=== PATIENT | female | born 1955 | race Caucasian/White ===

== ENCOUNTER 2021-04-27 11:03 | Inpatient (IN) | payer MEDICARE ==
[2021-04-27] VITALS (8 sets, daily range): BP systolic 104–160; BP diastolic 50–74
[~2021-04-27] VITALS: Ht 165.1 cm; Wt 63.6 kg
[2021-04-27 11:38] LABS: BASOPHILS % (AUTO) 0.1 % (0-1); MEAN CORPUSCULAR HGB CONC 30.4 g/dL (33.0-36.5)
[2021-04-27 11:39] LABS: EOSINOPHILS % (AUTO) 0.1 % (0-6); HEMATOCRIT 24.2 % (35.0-45.0); HEMOGLOBIN 7.4 g/dl (12.0-16.0); LYMPHOCYTES # (AUTO) 1.9 X10'3 (1.1-4.8); LYMPHOCYTES % (AUTO) 5.9 % (21-51); MEAN CORPUSCULAR HEMOGLOBIN 20.7 PG (27.0-31.0); MEAN CORPUSCULAR VOLUME 68.2 FL (78-98); MONOCYTES # (AUTO) 1.8 X10'3 (0-0.9); MONOCYTES % (AUTO) 5.5 % (2-12); NEUTROPHILS # (AUTO) 28.7 X10'3 (1.8-7.7); NEUTROPHILS % (AUTO) 88.4 % (42-75); RED BLOOD COUNT 3.56 X10'6 (4.20-5.60)
[2021-04-27 11:43] LABS: WHITE BLOOD COUNT 32.5 X10'3 (4.5-11.0)
[2021-04-27 11:44] LABS: PLATELET COUNT 1088 X10'3 (140-440)
[2021-04-27 11:48] LABS: ALANINE AMINOTRANSFERASE 19 U/L (12-78); ALBUMIN 1.7 G/DL (3.4-5.0); ALBUMIN/GLOBULIN RATIO 0.3 (1.1-1.5); ALKALINE PHOSPHATASE 170 IU/L (46-116); ANION GAP 14 (8-16); ASPARTATE AMINO TRANSFERASE 15 U/L (10-37); BILIRUBIN,TOTAL 0.3 MG/DL (0.1-1.0); BLOOD UREA NITROGEN 16 MG/DL (7-18); BUN/CREATININE RATIO 20.5 (6.6-38.0); CALCIUM 8.5 MG/DL (8.5-10.1); CHLORIDE 102 MMOL/L (99-107); CREATININE 0.78 MG/DL (0.40-0.90); GLUCOSE 143 MG/DL (70-104); POTASSIUM 3.9 MMOL/L (3.5-5.1); SODIUM 138 MMOL/L (135-145); TOTAL CARBON DIOXIDE 21.6 MMOL/L (24-32); TOTAL PROTEIN 8.2 G/DL (6.4-8.2); eGFR 73 ML/MIN
[2021-04-27] MEDS: normal saline 1000ML IV soln IV ONE ×2 (11:50→12:44)
[2021-04-27] MEDS ORDERED: CefTRIAXone/D5W-Rocephin 1gm 50 ML IV ONE (11:55)
[2021-04-27] MEDS ORDERED: vancomycin/NS 1 GM ADD-VANTAGE 250 ML IV ONE (11:55)
[2021-04-27] MEDS ORDERED: normal saline 1000ml 1,000 ML IV ONE ×2 (11:55→12:35)
[2021-04-27] MEDS ORDERED: iohexol 300mg/ml 100ml inj. ONE (12:08)
[2021-04-27 12:17] LABS: CLARITY,URINE CLOUDY (Clear); COLOR,URINE YELLOW (Yellow); GLUCOSE, URINE NEGATIVE (Neg); KETONES,URINE NEGATIVE (Neg); LEUKOCYTE ESTERASE ,URINE MODERATE (Neg); NITRITES, URINE POSITIVE (Neg); OCCULT BLOOD,URINE SMALL (Neg); PROTEIN,URINE 30 mg/dl (Neg)
[2021-04-27 12:23] LABS: UA COLLECTION TYPE CLN CATCH MIDSTREAM
[2021-04-27 12:29] LABS: WBC,URINE TNTC /HPF (0-4)
[2021-04-27 12:30] LABS: BACTERIA,URINE 4+ /HPF (Neg); MUCUS STRANDS NONE SEEN /LPF (Neg); SQUAMOUS EPITHELIAL CELL,UR MODERATE /LPF (FEW); WBC CLUMPS,URINE FEW /HPF (NEGATIVE)
[2021-04-27 12:40] LABS: ANISOCYTOSIS 3+; PLATELET ESTIMATE INCREASED; TOTAL CELLS COUNTED 100
[2021-04-27] MEDS ORDERED: ondansetron/PF 4mg/2ml inj IV ONE (12:40)
[2021-04-27] MEDS ORDERED: morphine 4 MG/ML inj SYRINge IV ONE (12:40)
[2021-04-27 12:41] LABS: HYPOCHROMASIA 2+; MICROCYTOSIS 2+; POLYCHROMASIA FEW; TOXIC GRANULATION 2+
[2021-04-27 12:53] LABS: LARGE PLATELETS FEW
[2021-04-27 12:54] LABS: TARGET CELLS 1+
[2021-04-27] MEDS ORDERED: clindamycin 600mg/D5W 50ml 50 ML IV ONE (13:15)
[2021-04-27] MEDS ORDERED: levoFLOXACIN-Levaquin 750MG/D5 150 ML IV STA (13:33)
[2021-04-27] MEDS ORDERED: morphine 2 MG/ML inj. syringe IV PRN ×3 (13:35→18:50)
[2021-04-27] MEDS ORDERED: magnesium 4gm in 100ml NS 100 ML IV PRN (13:35)
[2021-04-27] MEDS ORDERED: ondansetron/PF 4mg/2ml inj IV PRN ×2 (13:35→18:50)
[2021-04-27] MEDS ORDERED: potassium Cl 20 mEq SR tablet PO PRN ×2 (13:35)
[2021-04-27] MEDS ORDERED: magnesium 2GM in 50ml NS 50 ML IV PRN (13:35)
[2021-04-27] MEDS ORDERED: potassium Cl 40MEQ/1/2NS 520ml 520 ML IV PRN ×2 (13:35)
[2021-04-27] MEDS ORDERED: acetaminophen 325mg tablet PO PRN (13:35)
[2021-04-27] MEDS ORDERED: metroNIDAZOLE-Flagyl 500mg/NS 100ml IVPB IV SCH (14:00)
[2021-04-27] MEDS ORDERED: vancomycin inj 500 MG in normal saline 100ml IV soln 100 ML IV ONE (14:50)
[2021-04-27] MEDS ORDERED: metroNIDAZOLE-Flagyl 750mg/NS 150 ML IV SCH (16:00)
[2021-04-27] MEDS ORDERED: NO HOME MEDS (17:17)
[2021-04-27] MEDS ORDERED: LIDOcaine 1% 30ml preserv. free vial ONE (17:42)
[2021-04-27] MEDS ORDERED: BUPIVAcaine 0.5% inj/PF 30 ML ONE (17:42)
[2021-04-27] MEDS ORDERED: fentaNYL/PF 50MCG/1 ML 2ML syringe ONE ×2 (18:19→19:06)
[2021-04-27] MEDS ORDERED: midazolam 1 mg/ML 2ml injection ONE (18:19)
[2021-04-27] MEDS ORDERED: sevoflurane 250ml liquid IH ONE (18:21)
[2021-04-27] MEDS ORDERED: glycopyrrolate 0.2mg/ml inj ONE (18:21)
[2021-04-27] MEDS ORDERED: albumin (Human) 5% 250ml 250 ML IV ONE ×2 (18:48→20:16)
[2021-04-27] MEDS ORDERED: rocuronium 10mg/ml inj IV ONE (18:48)
[2021-04-27] MEDS ORDERED: propofol inj 20 ML IV ONE (18:48)
[2021-04-27] MEDS ORDERED: meperidine/PF 25mg/ml syringe IV PRN ×3 (18:50)
[2021-04-27] MEDS ORDERED: ringers solution, lacted 1,000 ML IV SCH (18:50)
[2021-04-27] MEDS ORDERED: morphine 4 MG/ML inj SYRINge IV PRN (18:50)
[2021-04-27] MEDS ORDERED: proCHLORperazine 10 MG/2 ml inj IV PRN (18:50)
[2021-04-27] MEDS: enoxaparin 40mg/0.4ml syringe SQ SCH (20:00)
[2021-04-27] MEDS ORDERED: neostigmine methylsulfate 1 MG/ML 10ml vial ONE (20:49)
[2021-04-27] MEDS ORDERED: naloxone 0.4 mg/ml inj IV PRN (21:10)
[2021-04-27] MEDS ORDERED: CADD PCA waste documentation MC PRN (21:10)
--- NOTE | 2021-04-27 21:12 | NUR ---
ASSUME CARE PT AWAKE VSS NO DISTRESS, FM 10L SAT 100, IFEOMA TO RIGHT WRIST, IV TO LARM 20G, ABD INCISION WITH WOUND VAC INTACT, PULLING OUT SCANT AMT DRAINAGE, COLOSTOMY BAG TO LEFT UPPER ABD COELHO CATH SECURED WITH STAT LOCK TO GRAVITY DRAINING CLEAR YELLOW URINE. CONT TO MONITOR. Addendum: 04/27/21 at 2151 by Samira Santamaria RN Amended: Links added.
[2021-04-27] MEDS ORDERED: ringers solution, lacted 1,000 ML IV ONE (21:30)
--- NOTE | 2021-04-27 22:30 | NUR ---
Pt refused bed bath stating she took a shower earlier today and she just wanted to sleep.
[2021-04-27] MEDS: K and/or MAG REPLACEMENT MC SCH (23:00)
[2021-04-27] MEDS: HYDROmorph./NS 0.2 mg/ml CADD 100 ML IV SCH ×2 (23:00→23:07)
--- NOTE | 2021-04-27 23:15 | NUR ---
Art line placed in right wrist discontinued by nurse. Pressure applied for appropriate time to control bleeding.
[2021-04-27] MEDS: clindamycin 600mg/D5W 50ml 50 ML IV SCH (23:52)
[2021-04-28] VITALS (18 sets, daily range): BP systolic 121–152; BP diastolic 60–78
--- NOTE | 2021-04-28 00:37 | NUR ---
MD Nathan ordered to HOLD the SubQ Lovenox for tonight and have the patient on LR 150 mls/hr for maintenance.
[2021-04-28] MEDS: vancomycin/NS 1 GM ADD-VANTAGE 250 ML IV SCH ×3 (01:00→23:11)
[2021-04-28] MEDS: HYDROmorph./NS 0.2 mg/ml CADD 100 ML IV SCH ×8 (01:00→23:00)
[2021-04-28] MEDS: ringers solution, lacted 1,000 ML IV SCH ×4 (01:01→23:13)
[2021-04-28] MEDS: clindamycin 600mg/D5W 50ml 50 ML IV SCH ×3 (02:00→20:39)
[2021-04-28 06:09] LABS: BASOPHILS % (AUTO) 0.1 % (0-1); EOSINOPHILS % (AUTO) 0 % (0-6); LYMPHOCYTES # (AUTO) 2.1 X10'3 (1.1-4.8); LYMPHOCYTES % (AUTO) 6.9 % (21-51); MEAN CORPUSCULAR HEMOGLOBIN 20.2 PG (27.0-31.0); MEAN CORPUSCULAR HGB CONC 29.8 g/dL (33.0-36.5); MEAN CORPUSCULAR VOLUME 67.8 FL (78-98); MEAN PLATELET VOLUME 5.8 FL (7.4-10.4); MONOCYTES # (AUTO) 1.3 X10'3 (0-0.9); MONOCYTES % (AUTO) 4.2 % (2-12); NEUTROPHILS # (AUTO) 27.1 X10'3 (1.8-7.7); NEUTROPHILS % (AUTO) 88.8 % (42-75); PLATELET COUNT 784 X10'3 (140-440); RED BLOOD COUNT 2.85 X10'6 (4.20-5.60)
[2021-04-28 06:11] LABS: ALANINE AMINOTRANSFERASE 14 U/L (12-78); ALBUMIN 1.7 G/DL (3.4-5.0); ALBUMIN/GLOBULIN RATIO 0.4 (1.1-1.5); ALKALINE PHOSPHATASE 113 IU/L (46-116); ANION GAP 12 (8-16); ASPARTATE AMINO TRANSFERASE 10 U/L (10-37); BILIRUBIN,TOTAL 0.3 MG/DL (0.1-1.0); BLOOD UREA NITROGEN 14 MG/DL (7-18); BUN/CREATININE RATIO 22.2 (6.6-38.0); CALCIUM 7.2 MG/DL (8.5-10.1); CHLORIDE 110 MMOL/L (99-107); CREATININE 0.63 MG/DL (0.40-0.90); GLUCOSE 119 MG/DL (70-104); MAGNESIUM 1.5 MG/DL (1.5-2.4); POTASSIUM 4.2 MMOL/L (3.5-5.1); SODIUM 142 MMOL/L (135-145); TOTAL PROTEIN 5.6 G/DL (6.4-8.2); eGFR > 90 ML/MIN
[2021-04-28 06:15] LABS: HEMATOCRIT 19.3 % (35.0-45.0); HEMOGLOBIN 5.8 g/dl (12.0-16.0); WHITE BLOOD COUNT 30.6 X10'3 (4.5-11.0)
--- NOTE | 2021-04-28 06:40 | NUR ---
Getter Welder MD Chauhan and Surgeon MD Nathan were both notified of critically low Hgb of 5.8 and Hct of 19.3. 2 units of blood ordered.
[2021-04-28 07:04] LABS: NUCLEATED RED BLOOD CELLS 1 /100WBC (0-0); TOTAL CELLS COUNTED 100
[2021-04-28 07:05] LABS: ANISOCYTOSIS 3+; HYPOCHROMASIA 2+; MICROCYTOSIS 2+; PLATELET ESTIMATE INCREASED; TARGET CELLS 1+
[2021-04-28 07:15] LABS: LARGE PLATELETS FEW
--- NOTE | 2021-04-28 07:58 | NUR ---
Pt transferred from ICU 2039 to PCU 301. Problems reprioritized. Patient report given, questions answered & plan of care reviewed with MAGDALENA Arnold.
[2021-04-28] MEDS ORDERED: levoFLOXACIN-Levaquin 750MG/D5 150 ML IV SCH (08:00)
[2021-04-28] MEDS: K and/or MAG REPLACEMENT MC SCH ×2 (08:00→20:00)
[2021-04-28] MEDS: CefTRIAXone/D5W-Rocephin 1gm 50 ML IV SCH (12:10)
--- NOTE | 2021-04-28 14:14 | NUR ---
paged rojas PAGER ID: [phone] MESSAGE: room 3011, rocío erickson, patient has surgical wound on lower left quadrant of abd that is red, draining, and warm to the touch. wound care saw pt this morning and applied a bandage that will not hold up. please unit. Catalina NICHOLS
--- NOTE | 2021-04-28 15:29 | NUR ---
Malnutrition Consult: Pt admit DX sepsis r/t intra-abdominal and abdominal wall abscess, perforated viscus, anemia, and thrombocytosis per EMR. Pt s/p exploratory laparotomy, partial colectomy, colostomy, and wound vac placement 8/17 PM per DO note. 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 Pt reports 14-23 pounds loss past 3 months per Nursing Malnutrition Screen. Pt has severe weakness present, no edema, and no scaled wt this admit or prior wt hx. RD attempted to see pt today however pt unavailable. Malnutrition status pending further information at this time. Pt would benefit from high protein/colostomy diet eds this admit prior to discharge. Will continue to monitor for PO diet advancement/tolerance, ONS needs, and additional malnutrition criteria. Rec: 1. advance diet as medically indicated to low-residue 2. monitor for ONS needs as diet advances; consider Sam and/or Ensure Enlive ONS pending PO hx for wound healing needs 3. bowel care per rx 4. scaled wt this admit; subsequent weekly wts 5. high protein/colostomy diet eds prior to discharge Addendum: 04/28/21 at [address] Amended: Links added.
[2021-04-28 17:05] LABS: HEMOGLOBIN 11.7 g/dl (12.0-16.0); MEAN CORPUSCULAR HEMOGLOBIN 26.2 PG (27.0-31.0)
[2021-04-28 17:06] LABS: HEMATOCRIT 36.7 % (35.0-45.0); MEAN CORPUSCULAR VOLUME 81.7 FL (78-98); MEAN PLATELET VOLUME 5.8 FL (7.4-10.4); PLATELET COUNT 650 X10'3 (140-440); RED BLOOD COUNT 4.49 X10'6 (4.20-5.60); RED CELL DISTRIBUTION WIDTH 26.3 % (11.5-14.5)
[2021-04-28 17:09] LABS: WHITE BLOOD COUNT 30.1 X10'3 (4.5-11.0)
--- NOTE | 2021-04-28 17:24 | NUR ---
tomyd rojas PAGER ID: [phone] MESSAGE: 3011, rocío burt, critical labs WBC 30.1, trending down from 32.5 Catalina NICHOLS #[id number]
--- NOTE | 2021-04-28 18:25 | NUR ---
Patient in room PCU 3011. I have received bedside report from MAGDALENA Arnold and had the opportunity to ask questions and assume patient care.
[2021-04-28] MEDS: enoxaparin 40mg/0.4ml syringe SQ SCH (20:39)
[2021-04-28 23:18] LABS: HEMATOCRIT 31.7 % (35.0-45.0); HEMOGLOBIN 10.2 g/dl (12.0-16.0); MEAN CORPUSCULAR HEMOGLOBIN 25.8 PG (27.0-31.0); MEAN CORPUSCULAR VOLUME 80.8 FL (78-98); MEAN PLATELET VOLUME 5.7 FL (7.4-10.4); PLATELET COUNT 633 X10'3 (140-440); RED BLOOD COUNT 3.93 X10'6 (4.20-5.60); RED CELL DISTRIBUTION WIDTH 26.2 % (11.5-14.5)
[2021-04-28] MEDS ORDERED: VANCOMYCIN LEVEL IV ONE (23:30)
[2021-04-28 23:32] LABS: WHITE BLOOD COUNT 26.1 X10'3 (4.5-11.0)
--- NOTE | 2021-04-29 00:09 | NUR ---
Critical Value: Melinda 24.6-Notified pharmacy and , held melinda gtt, pharmacy will redose tomorrow @ 1200 WBC-26.1-value lower than previous
[2021-04-29] MEDS: HYDROmorph./NS 0.2 mg/ml CADD 100 ML IV SCH ×12 (01:00→23:00)
[2021-04-29] MEDS: clindamycin 600mg/D5W 50ml 50 ML IV SCH ×3 (01:00→08:17)
[2021-04-29 02:00] VITALS: BP 149/71
[2021-04-29] MEDS: ringers solution, lacted 1,000 ML IV SCH ×4 (04:37→21:13)
[2021-04-29 06:00] VITALS: BP 159/88
--- NOTE | 2021-04-29 06:19 | NUR ---
Problems reprioritized. Patient report given, questions answered & plan of care reviewed with MAGDALENA Park.
[2021-04-29 07:30] LABS: HEMATOCRIT 30.9 % (35.0-45.0); MEAN CORPUSCULAR HGB CONC 32.4 g/dL (33.0-36.5); MEAN CORPUSCULAR VOLUME 80.3 FL (78-98); MEAN PLATELET VOLUME 5.9 FL (7.4-10.4); PLATELET COUNT 666 X10'3 (140-440); RED BLOOD COUNT 3.85 X10'6 (4.20-5.60); RED CELL DISTRIBUTION WIDTH 27.2 % (11.5-14.5)
[2021-04-29 07:36] LABS: WHITE BLOOD COUNT 25.6 X10'3 (4.5-11.0)
[2021-04-29 07:42] LABS: ALANINE AMINOTRANSFERASE 14 U/L (12-78); ALBUMIN 1.5 G/DL (3.4-5.0); ALBUMIN/GLOBULIN RATIO 0.4 (1.1-1.5); ALKALINE PHOSPHATASE 114 IU/L (46-116); ANION GAP 11 (8-16); ASPARTATE AMINO TRANSFERASE 10 U/L (10-37); BILIRUBIN,TOTAL 0.3 MG/DL (0.1-1.0); BLOOD UREA NITROGEN 11 MG/DL (7-18); BUN/CREATININE RATIO 16.7 (6.6-38.0); CALCIUM 7.4 MG/DL (8.5-10.1); CHLORIDE 110 MMOL/L (99-107); CREATININE 0.66 MG/DL (0.40-0.90); GLUCOSE 91 MG/DL (70-104); MAGNESIUM 1.6 MG/DL (1.5-2.4); SODIUM 141 MMOL/L (135-145); TOTAL CARBON DIOXIDE 19.9 MMOL/L (24-32); TOTAL PROTEIN 5.6 G/DL (6.4-8.2); eGFR 89 ML/MIN
[2021-04-29] MEDS: K and/or MAG REPLACEMENT MC SCH ×2 (08:00→20:00)
[2021-04-29] MEDS: CefTRIAXone/D5W-Rocephin 1gm 50 ML IV SCH (09:27)
[2021-04-29 11:00] VITALS: BP 143/89
[2021-04-29] MEDS: metroNIDAZOLE-Flagyl 500mg/NS 100 ML IV SCH ×3 (11:10→23:42)
[2021-04-29] MEDS ORDERED: LIDOcaine 4% (40 mg/ml) topical solution 50ml TP STA (12:04)
--- NOTE | 2021-04-29 12:04 | NUR ---
tomyd Fidelina PAGER ID: [phone] MESSAGE: room 3011, Imani Kayleigh, patient is feeling anxious and short of breath prior to wound dressing charge. can i order 0.5 ativan PRN for her? Catalina NICHOLS
[2021-04-29] MEDS: vancomycin inj. 750 MG in normal saline 250ml IV soln 250 ML IV SCH (13:08)
--- NOTE | 2021-04-29 13:59 | NUR ---
F/u for malnutrition consult: Pt seen at bedside states she doesn't take her weight so is unsure of UBW but believes she normally weighs 150 lbs and states she weighed 140 lbs at last visit at PCP's office about a week ago. Pt believes wt loss occurred over the course of a few months r/t decreased appetite though does state PO intake fluctuates based on what food she is eating. Pt with no visible fat or muscle wasting. No edema per EMR. Pt currently lacks a minimum of two criteria for malnutrition. Pt provided with written and verbal high protein and colostomy nutrition therapy educations with a list of fiber content in foods. 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 RD contact information provided and pt encouraged to reach out if needed. Pt endorses a good appetite and denies food allergies or difficulty chewing/swallowing. Will continue to follow. Addendum: 04/29/21 at [address] Amended: Links added.
[2021-04-29 14:20] LABS: HEMOGLOBIN 10.2 g/dl (12.0-16.0); MEAN CORPUSCULAR HEMOGLOBIN 26.5 PG (27.0-31.0); MEAN CORPUSCULAR HGB CONC 32.9 g/dL (33.0-36.5); MEAN CORPUSCULAR VOLUME 80.4 FL (78-98); MEAN PLATELET VOLUME 5.8 FL (7.4-10.4); PLATELET COUNT 622 X10'3 (140-440); RED BLOOD COUNT 3.86 X10'6 (4.20-5.60); RED CELL DISTRIBUTION WIDTH 26.8 % (11.5-14.5)
[2021-04-29 14:23] LABS: WHITE BLOOD COUNT 26.4 X10'3 (4.5-11.0)
[2021-04-29 15:00] VITALS: BP 172/82
[2021-04-29 18:00] VITALS: BP 173/95
[2021-04-29] MEDS: lactobacillus rhamnosus 10,000 MMU CELLS/CAPSULE PO SCH (21:04)
[2021-04-29] MEDS: enoxaparin 40mg/0.4ml syringe SQ SCH (21:05)
[2021-04-29 22:00] VITALS: BP 156/82
[2021-04-29 23:09] LABS: HEMOGLOBIN 9.9 g/dl (12.0-16.0); MEAN PLATELET VOLUME 5.7 FL (7.4-10.4)
[2021-04-29 23:12] LABS: HEMATOCRIT 30.5 % (35.0-45.0); MEAN CORPUSCULAR HEMOGLOBIN 26.1 PG (27.0-31.0); MEAN CORPUSCULAR HGB CONC 32.5 g/dL (33.0-36.5); MEAN CORPUSCULAR VOLUME 80.3 FL (78-98); PLATELET COUNT 629 X10'3 (140-440); RED CELL DISTRIBUTION WIDTH 27.7 % (11.5-14.5); WHITE BLOOD COUNT 24.3 X10'3 (4.5-11.0)
[2021-04-30] MEDS: HYDROmorph./NS 0.2 mg/ml CADD 100 ML IV SCH ×12 (01:00→23:00)
[2021-04-30] MEDS: vancomycin inj. 750 MG in normal saline 250ml IV soln 250 ML IV SCH ×2 (01:08→14:22)
[2021-04-30] MEDS: ringers solution, lacted 1,000 ML IV SCH ×3 (01:09→14:23)
[2021-04-30 02:00] VITALS: BP 147/88
[2021-04-30 06:00] VITALS: BP 177/99
--- NOTE | 2021-04-30 06:37 | NUR ---
Patient in room PCU 3011. I have received report from MAGDALENA Paul and had the opportunity to ask questions and assume patient care.
--- NOTE | 2021-04-30 06:37 | NUR ---
Problems reprioritized. Patient report given, questions answered & plan of care reviewed with MAGDALENA Cortes.
[2021-04-30 07:44] LABS: HEMATOCRIT 30.6 % (35.0-45.0); HEMOGLOBIN 9.9 g/dl (12.0-16.0); MEAN CORPUSCULAR HEMOGLOBIN 26.3 PG (27.0-31.0); MEAN CORPUSCULAR HGB CONC 32.6 g/dL (33.0-36.5); MEAN CORPUSCULAR VOLUME 80.8 FL (78-98); MEAN PLATELET VOLUME 5.9 FL (7.4-10.4); PLATELET COUNT 597 X10'3 (140-440); RED BLOOD COUNT 3.78 X10'6 (4.20-5.60); RED CELL DISTRIBUTION WIDTH 27.3 % (11.5-14.5); WHITE BLOOD COUNT 22.8 X10'3 (4.5-11.0)
[2021-04-30] MEDS: metroNIDAZOLE-Flagyl 500mg/NS 100 ML IV SCH ×2 (07:54→16:38)
[2021-04-30] MEDS: CefTRIAXone 2gm/D5W 50ml BAG 50 ML IV SCH (07:54)
[2021-04-30] MEDS: lactobacillus rhamnosus 10,000 MMU CELLS/CAPSULE PO SCH ×2 (07:54→20:48)
[2021-04-30] MEDS: K and/or MAG REPLACEMENT MC SCH ×2 (08:00→20:00)
[2021-04-30 08:16] LABS: ALANINE AMINOTRANSFERASE 15 U/L (12-78); ALBUMIN 1.4 G/DL (3.4-5.0); ALBUMIN/GLOBULIN RATIO 0.3 (1.1-1.5); ALKALINE PHOSPHATASE 137 IU/L (46-116); ANION GAP 14 (8-16); ASPARTATE AMINO TRANSFERASE 11 U/L (10-37); BILIRUBIN,TOTAL 0.3 MG/DL (0.1-1.0); BLOOD UREA NITROGEN 7 MG/DL (7-18); BUN/CREATININE RATIO 11.5 (6.6-38.0); CALCIUM 7.3 MG/DL (8.5-10.1); CHLORIDE 108 MMOL/L (99-107); CREATININE 0.61 MG/DL (0.40-0.90); GLUCOSE 79 MG/DL (70-104); MAGNESIUM 1.6 MG/DL (1.5-2.4); POTASSIUM 3.7 MMOL/L (3.5-5.1); SODIUM 141 MMOL/L (135-145); TOTAL CARBON DIOXIDE 19.5 MMOL/L (24-32); TOTAL PROTEIN 5.5 G/DL (6.4-8.2); eGFR > 90 ML/MIN
[2021-04-30] MEDS: LORazepam 2 mg/ml vial IV PRN (08:37)
[2021-04-30 11:00] VITALS: BP 118/73
[2021-04-30 11:45] LABS: C-REACTIVE PROTEIN 19.55 MG/DL (0.0-0.5)
[2021-04-30] MEDS ORDERED: LIDOcaine 4% (40 mg/ml) topical solution 50ml TP ONE (12:30)
[2021-04-30 14:18] LABS: MEAN PLATELET VOLUME 5.8 FL (7.4-10.4)
[2021-04-30 14:20] LABS: HEMATOCRIT 31.9 % (35.0-45.0); HEMOGLOBIN 10.3 g/dl (12.0-16.0); MEAN CORPUSCULAR HEMOGLOBIN 26.1 PG (27.0-31.0); MEAN CORPUSCULAR HGB CONC 32.2 g/dL (33.0-36.5); PLATELET COUNT 655 X10'3 (140-440); RED BLOOD COUNT 3.94 X10'6 (4.20-5.60); RED CELL DISTRIBUTION WIDTH 27.5 % (11.5-14.5); WHITE BLOOD COUNT 23.7 X10'3 (4.5-11.0)
[2021-04-30 15:00] VITALS: BP 161/96
[2021-04-30 18:00] VITALS: BP 109/65
--- NOTE | 2021-04-30 18:20 | NUR ---
Patient in room PCU 3011. I have received report from Sophia NICHOLS and had the opportunity to ask questions and assume patient care.
--- NOTE | 2021-04-30 18:21 | NUR ---
Problems reprioritized. Patient report given, questions answered & plan of care reviewed with MAGDALENA Brown.
[2021-04-30] MEDS: enoxaparin 40mg/0.4ml syringe SQ SCH (20:49)
[2021-04-30 22:00] VITALS: BP 171/89
[2021-05-01] MEDS ORDERED: VANCOMYCIN LEVEL IV ONE (00:30)
[2021-05-01] MEDS: metroNIDAZOLE-Flagyl 500mg/NS 100 ML IV SCH ×4 (00:36→23:57)
[2021-05-01] MEDS: ringers solution, lacted 1,000 ML IV SCH ×3 (00:37→23:57)
[2021-05-01] MEDS: HYDROmorph./NS 0.2 mg/ml CADD 100 ML IV SCH ×6 (01:00→11:00)
[2021-05-01 01:39] LABS: ALANINE AMINOTRANSFERASE 14 U/L (12-78); ALBUMIN 1.5 G/DL (3.4-5.0); ALBUMIN/GLOBULIN RATIO 0.3 (1.1-1.5); ALKALINE PHOSPHATASE 119 IU/L (46-116); ANION GAP 13 (8-16); ASPARTATE AMINO TRANSFERASE 11 U/L (10-37); BILIRUBIN,TOTAL 0.3 MG/DL (0.1-1.0); BLOOD UREA NITROGEN 6 MG/DL (7-18); BUN/CREATININE RATIO 9.2 (6.6-38.0); CALCIUM 7.6 MG/DL (8.5-10.1); CHLORIDE 106 MMOL/L (99-107); CREATININE 0.65 MG/DL (0.40-0.90); GLUCOSE 92 MG/DL (70-104); MAGNESIUM 1.5 MG/DL (1.5-2.4); POTASSIUM 3.7 MMOL/L (3.5-5.1); SODIUM 139 MMOL/L (135-145); TOTAL CARBON DIOXIDE 20.3 MMOL/L (24-32); TOTAL PROTEIN 5.8 G/DL (6.4-8.2); VANCOMYCIN,TROUGH 19.8 UG/ML (6.0-14.0); eGFR > 90 ML/MIN
[2021-05-01 02:00] VITALS: BP 155/65
[2021-05-01] MEDS: vancomycin inj. 750 MG in normal saline 250ml IV soln 250 ML IV SCH ×2 (02:44→14:00)
[2021-05-01 06:00] VITALS: BP 159/100
--- NOTE | 2021-05-01 06:53 | NUR ---
Problems reprioritized. Patient report given, questions answered & plan of care reviewed with JOSEPH NICHOLS.
[2021-05-01] MEDS: K and/or MAG REPLACEMENT MC SCH ×2 (08:00→20:00)
[2021-05-01 08:12] LABS: BASOPHILS % (AUTO) 0.2 % (0-1); EOSINOPHILS # (AUTO) 0.4 X10'3 (0-0.9); HEMATOCRIT 32.4 % (35.0-45.0); HEMOGLOBIN 10.5 g/dl (12.0-16.0); NEUTROPHILS % (AUTO) 83.6 % (42-75)
[2021-05-01 08:13] LABS: EOSINOPHILS % (AUTO) 1.9 % (0-6); LYMPHOCYTES # (AUTO) 1.7 X10'3 (1.1-4.8); LYMPHOCYTES % (AUTO) 7.6 % (21-51); MEAN CORPUSCULAR HEMOGLOBIN 26.2 PG (27.0-31.0); MEAN CORPUSCULAR HGB CONC 32.4 g/dL (33.0-36.5); MEAN CORPUSCULAR VOLUME 80.8 FL (78-98); MEAN PLATELET VOLUME 5.7 FL (7.4-10.4); MONOCYTES # (AUTO) 1.5 X10'3 (0-0.9); MONOCYTES % (AUTO) 6.7 % (2-12); PLATELET COUNT 689 X10'3 (140-440); RED BLOOD COUNT 4.01 X10'6 (4.20-5.60); RED CELL DISTRIBUTION WIDTH 28.1 % (11.5-14.5); WHITE BLOOD COUNT 22.8 X10'3 (4.5-11.0)
[2021-05-01 08:52] LABS: ANISOCYTOSIS 3+; PLATELET ESTIMATE INCREASED; TOTAL CELLS COUNTED 100
[2021-05-01 08:53] LABS: POIKILOCYTOSIS FEW
[2021-05-01] MEDS: lactobacillus rhamnosus 10,000 MMU CELLS/CAPSULE PO SCH ×2 (09:01→20:00)
[2021-05-01] MEDS: LORazepam 2 mg/ml vial IV PRN (10:28)
--- NOTE | 2021-05-01 10:28 | NUR ---
Reassessment: Patient's diet has been advanced to clear liquids and pt documented with 25% PO intake. Pt not meeting estimated nutrient needs though unable to be achieved given current diet order. Per MD note pt with no ostomy output, with a post-op ileus per surgeon note. Pt would benefit from PN if unable to advance PO diet with prolonged return of bowel function, pt currently day 4 with insufficient nutrition. Will continue to follow closely and make recommendations as appropriate. Rec: 1. Advance to low residue diet as medically indicated 2. Monitor need for additional protein/ONS with diet advancement; consider Sam and/or Ensure Enlive for wound healing pending trends in PO intake and diet advancement 3. Consider PN if unable to advance PO diet with prolonged return of bowel function 5. bowel care per rx 6. Scaled wt this admit; subsequent weekly wts Addendum: 05/01/21 at [address] Amended: Links added.
[2021-05-01 11:00] VITALS: BP 152/86
[2021-05-01] MEDS: CefTRIAXone 2gm/D5W 50ml BAG 50 ML IV SCH (12:38)
[2021-05-01] MEDS: HYDROcodone/acetaminophen 5mg/325mg tablet PO PRN ×2 (13:59→20:00)
[2021-05-01 15:00] VITALS: BP 172/95
[2021-05-01] MEDS: HYDROmorphone inj. 0.5 MG/0.5 ML DISP.SYRIN IV PRN (16:58)
[2021-05-01 18:00] VITALS: BP 162/92
--- NOTE | 2021-05-01 18:21 | NUR ---
Problems reprioritized. Patient report given, questions answered & plan of care reviewed with Stephanie NICHOLS.
--- NOTE | 2021-05-01 18:29 | NUR ---
Patient in room PCU 3011. I have received report from JOSEPH NICHOLS and had the opportunity to ask questions and assume patient care.
[2021-05-01] MEDS: enoxaparin 40mg/0.4ml syringe SQ SCH (20:01)
[2021-05-01 22:00] VITALS: BP 174/104
[2021-05-02] MEDS: diatr meglu/diatrizoate 30ml oral sol.-(3 dose) bottle PO SCH ×3 (00:16→11:13)
--- NOTE | 2021-05-02 00:20 | NUR ---
Patient in room PCU 3011. I have received report from CELIO NICHOLS and had the opportunity to ask questions and assume patient care.
[2021-05-02] MEDS: vancomycin inj. 750 MG in normal saline 250ml IV soln 250 ML IV SCH ×2 (01:53→15:11)
--- NOTE | 2021-05-02 01:53 | NUR ---
BLOOD PRESSURES TRENDING 160'S/170'S SYSTOLICALLY. CALLED MD CARRASQUILLO. NO NEW ORDERS WILL CONTINUE TO MONITOR PER PROTOCOL. DANIELE NICHOLS
[2021-05-02] MEDS: HYDROcodone/acetaminophen 5mg/325mg tablet PO PRN ×3 (02:50→15:12)
[2021-05-02 07:00] VITALS: BP 165/90
[2021-05-02 07:11] LABS: ALANINE AMINOTRANSFERASE 8 U/L (12-78); ALBUMIN 1.1 G/DL (3.4-5.0); ALBUMIN/GLOBULIN RATIO 0.3 (1.1-1.5); ALKALINE PHOSPHATASE 91 IU/L (46-116); ANION GAP 13 (8-16); ASPARTATE AMINO TRANSFERASE 13 U/L (10-37); BILIRUBIN,TOTAL 0.3 MG/DL (0.1-1.0); BLOOD UREA NITROGEN 3 MG/DL (7-18); BUN/CREATININE RATIO 5.4 (6.6-38.0); CALCIUM 7.4 MG/DL (8.5-10.1); CHLORIDE 108 MMOL/L (99-107); CREATININE 0.56 MG/DL (0.40-0.90); GLUCOSE 90 MG/DL (70-104); MAGNESIUM 1.6 MG/DL (1.5-2.4); POTASSIUM 3.2 MMOL/L (3.5-5.1); SODIUM 142 MMOL/L (135-145); TOTAL CARBON DIOXIDE 21.5 MMOL/L (24-32); eGFR > 90 ML/MIN
[2021-05-02] MEDS: K and/or MAG REPLACEMENT MC SCH ×3 (08:00→20:00)
[2021-05-02] MEDS: CefTRIAXone 2gm/D5W 50ml BAG 50 ML IV SCH (08:34)
[2021-05-02] MEDS: metroNIDAZOLE-Flagyl 500mg/NS 100 ML IV SCH ×2 (08:35→15:11)
[2021-05-02] MEDS: lactobacillus rhamnosus 10,000 MMU CELLS/CAPSULE PO SCH ×2 (08:35→20:00)
[2021-05-02 11:00] VITALS: BP 173/91
[2021-05-02] MEDS: ringers solution, lacted 1,000 ML IV SCH ×2 (11:35→21:35)
[2021-05-02] MEDS ORDERED: iohexol 300mg/ml 100ml inj. ONE (11:42)
[2021-05-02] MEDS: HYDROmorphone inj. 0.5 MG/0.5 ML DISP.SYRIN IV PRN (11:55)
[2021-05-02 15:00] VITALS: BP 157/87
[2021-05-02] MEDS ORDERED: potassium Cl 20 mEq SR tablet PO PRN ×2 (15:05)
[2021-05-02] MEDS ORDERED: potassium Cl 40MEQ/1/2NS 520ml 520 ML IV PRN (15:05)
[2021-05-02] MEDS ORDERED: magnesium 4gm in 100ml NS 100 ML IV PRN (15:05)
[2021-05-02] MEDS ORDERED: POTASSIUM BICARB 20meq eff tab 20 MEQ TABLET.EFF PO PRN (18:10)
--- NOTE | 2021-05-02 18:25 | NUR ---
Problems reprioritized. Patient report given, questions answered & plan of care reviewed with Brigette NICHOLS.
[2021-05-02 19:00] VITALS: BP 171/103
[2021-05-02] MEDS: enoxaparin 40mg/0.4ml syringe SQ SCH (20:00)
[2021-05-02 23:00] VITALS: BP 188/107
[2021-05-03] MEDS: metroNIDAZOLE-Flagyl 500mg/NS 100 ML IV SCH ×3 (00:04→17:48)
[2021-05-03] MEDS: vancomycin inj. 750 MG in normal saline 250ml IV soln 250 ML IV SCH ×2 (01:00→14:11)
[2021-05-03 03:00] VITALS: BP 139/62
[2021-05-03] MEDS: K and/or MAG REPLACEMENT MC SCH ×4 (04:54→20:00)
[2021-05-03 06:21] LABS: BASOPHILS # (AUTO) 0.1 X10'3 (0-0.2); BASOPHILS % (AUTO) 0.3 % (0-1); EOSINOPHILS # (AUTO) 0.4 X10'3 (0-0.9); HEMATOCRIT 34.1 % (35.0-45.0); HEMOGLOBIN 11.2 g/dl (12.0-16.0); LYMPHOCYTES # (AUTO) 1.3 X10'3 (1.1-4.8); LYMPHOCYTES % (AUTO) 6.9 % (21-51); MEAN CORPUSCULAR HEMOGLOBIN 26.6 PG (27.0-31.0); MEAN CORPUSCULAR HGB CONC 32.9 g/dL (33.0-36.5); MEAN CORPUSCULAR VOLUME 81.1 FL (78-98); MEAN PLATELET VOLUME 6.2 FL (7.4-10.4); MONOCYTES % (AUTO) 5.1 % (2-12); NEUTROPHILS # (AUTO) 16.6 X10'3 (1.8-7.7); NEUTROPHILS % (AUTO) 85.7 % (42-75); PLATELET COUNT 735 X10'3 (140-440); RED CELL DISTRIBUTION WIDTH 28.2 % (11.5-14.5); WHITE BLOOD COUNT 19.3 X10'3 (4.5-11.0)
[2021-05-03 06:48] LABS: ALANINE AMINOTRANSFERASE 10 U/L (12-78); ALBUMIN 1.1 G/DL (3.4-5.0); ALBUMIN/GLOBULIN RATIO 0.3 (1.1-1.5); ALKALINE PHOSPHATASE 91 IU/L (46-116); ANION GAP 9 (8-16); ASPARTATE AMINO TRANSFERASE 11 U/L (10-37); BILIRUBIN,TOTAL 0.3 MG/DL (0.1-1.0); BLOOD UREA NITROGEN 3 MG/DL (7-18); CALCIUM 7.2 MG/DL (8.5-10.1); CHLORIDE 106 MMOL/L (99-107); GLUCOSE 88 MG/DL (70-104); MAGNESIUM 1.5 MG/DL (1.5-2.4); SODIUM 139 MMOL/L (135-145); TOTAL CARBON DIOXIDE 23.6 MMOL/L (24-32); TOTAL PROTEIN 5.1 G/DL (6.4-8.2); eGFR > 90 ML/MIN
[2021-05-03 06:59] LABS: POTASSIUM 2.9 MMOL/L (3.5-5.1)
[2021-05-03 07:07] LABS: ANISOCYTOSIS 3+; LARGE PLATELETS FEW; PLATELET ESTIMATE INCREASED; TOTAL CELLS COUNTED 100
[2021-05-03] MEDS: ringers solution, lacted 1,000 ML IV SCH ×2 (07:35→17:35)
[2021-05-03] MEDS: POTASSIUM BICARB 20meq eff tab 20 MEQ TABLET.EFF PO PRN ×3 (07:59→17:53)
[2021-05-03] MEDS: HYDROcodone/acetaminophen 5mg/325mg tablet PO PRN ×2 (08:01→12:20)
[2021-05-03] MEDS: lactobacillus rhamnosus 10,000 MMU CELLS/CAPSULE PO SCH ×2 (08:01→20:38)
[2021-05-03] MEDS: CefTRIAXone 2gm/D5W 50ml BAG 50 ML IV SCH (14:11)
[2021-05-03] MEDS: LORazepam 2 mg/ml vial IV PRN (14:36)
[2021-05-03] MEDS: HYDROmorphone inj. 0.5 MG/0.5 ML DISP.SYRIN IV PRN ×2 (15:43→20:40)
[2021-05-03 18:00] VITALS: BP 144/95
--- NOTE | 2021-05-03 18:05 | NUR ---
Patient in room PCU 3011. I have received report from Raman NICHOLS and had the opportunity to ask questions and assume patient care.
--- NOTE | 2021-05-03 20:34 | NUR ---
Pt requesting IV pain meds instead of PO b/c she is in a lot of pain currently.
[2021-05-03] MEDS: enoxaparin 40mg/0.4ml syringe SQ SCH (20:39)
--- NOTE | 2021-05-03 21:22 | NUR ---
IDA drain leaking from insertion site. Reinforced with gauze and tape. Emptied IDA drain to promote flow.
[2021-05-03 22:00] VITALS: BP 139/78
[2021-05-04] MEDS: metroNIDAZOLE-Flagyl 500mg/NS 100 ML IV SCH ×3 (00:02→17:10)
[2021-05-04] MEDS: vancomycin inj. 750 MG in normal saline 250ml IV soln 250 ML IV SCH ×2 (01:26→13:45)
[2021-05-04 02:00] VITALS: BP 155/86
[2021-05-04] MEDS: HYDROmorphone inj. 0.5 MG/0.5 ML DISP.SYRIN IV PRN ×4 (02:43→21:49)
[2021-05-04] MEDS: HYDROcodone/acetaminophen 5mg/325mg tablet PO PRN ×3 (03:20→17:11)
[2021-05-04 06:00] VITALS: BP 139/76
--- NOTE | 2021-05-04 06:12 | NUR ---
Problems reprioritized. Patient report given, questions answered & plan of care reviewed with Sandy NICHOLS.
--- NOTE | 2021-05-04 06:40 | NUR ---
Patient in room PCU 3011. I have received report from MAGDALENA Cardozo and had the opportunity to ask questions and assume patient care.
[2021-05-04 07:03] LABS: BASOPHILS # (AUTO) 0.1 X10'3 (0-0.2); HEMOGLOBIN 10.5 g/dl (12.0-16.0); WHITE BLOOD COUNT 19.8 X10'3 (4.5-11.0)
[2021-05-04 07:06] LABS: BASOPHILS % (AUTO) 0.4 % (0-1); EOSINOPHILS # (AUTO) 0.4 X10'3 (0-0.9); EOSINOPHILS % (AUTO) 2.2 % (0-6); HEMATOCRIT 32.6 % (35.0-45.0); LYMPHOCYTES # (AUTO) 2.1 X10'3 (1.1-4.8); LYMPHOCYTES % (AUTO) 10.4 % (21-51); MEAN CORPUSCULAR HGB CONC 32.3 g/dL (33.0-36.5); MEAN CORPUSCULAR VOLUME 80.4 FL (78-98); MEAN PLATELET VOLUME 6.4 FL (7.4-10.4); MONOCYTES # (AUTO) 1.1 X10'3 (0-0.9); MONOCYTES % (AUTO) 5.6 % (2-12); NEUTROPHILS # (AUTO) 16.1 X10'3 (1.8-7.7); NEUTROPHILS % (AUTO) 81.4 % (42-75); PLATELET COUNT 722 X10'3 (140-440); RED BLOOD COUNT 4.06 X10'6 (4.20-5.60); RED CELL DISTRIBUTION WIDTH 28.6 % (11.5-14.5)
[2021-05-04 07:22] LABS: ALANINE AMINOTRANSFERASE 10 U/L (12-78); ALBUMIN 1.1 G/DL (3.4-5.0); ALBUMIN/GLOBULIN RATIO 0.3 (1.1-1.5); ALKALINE PHOSPHATASE 110 IU/L (46-116); ANION GAP 4 (8-16); ASPARTATE AMINO TRANSFERASE 15 U/L (10-37); BILIRUBIN,TOTAL 0.2 MG/DL (0.1-1.0); BLOOD UREA NITROGEN 4 MG/DL (7-18); CHLORIDE 107 MMOL/L (99-107); CREATININE 0.57 MG/DL (0.40-0.90); GLUCOSE 106 MG/DL (70-104); MAGNESIUM 1.5 MG/DL (1.5-2.4); POTASSIUM 4.1 MMOL/L (3.5-5.1); SODIUM 140 MMOL/L (135-145); TOTAL CARBON DIOXIDE 28.6 MMOL/L (24-32); TOTAL PROTEIN 4.8 G/DL (6.4-8.2); eGFR > 90 ML/MIN
[2021-05-04] MEDS: K and/or MAG REPLACEMENT MC SCH ×4 (08:00→20:00)
[2021-05-04] MEDS: CefTRIAXone 2gm/D5W 50ml BAG 50 ML IV SCH (08:10)
[2021-05-04] MEDS: magnesium Cl slow-release 64mg tablet PO PRN (08:10)
[2021-05-04] MEDS: lactobacillus rhamnosus 10,000 MMU CELLS/CAPSULE PO SCH ×2 (08:10→21:50)
[2021-05-04 08:26] LABS: ANISOCYTOSIS 3+; PLATELET ESTIMATE INCREASED
[2021-05-04 08:27] LABS: HYPOCHROMASIA 1+; SCHISTOCYTES FEW
[2021-05-04 11:00] VITALS: BP 134/69
--- NOTE | 2021-05-04 12:33 | NUR ---
Reassessment: Pt's diet advanced to Regular last night 05/03. Pt was previously consuming about 25% of clear liquid diet. Pt reports she received a regular tray for breakfast this morning and was able to eat about 30% before feeling full. Pt states she wants to take things slow because it is her first day w/ solid foods, though her appetite is good. Pt states she would like more mashed potatoes and gravy since that is her comfort food, will honor preferences. Discussed w/ RN that RD recommends low residue diet. RN reports that pt had large ostomy output last night. Will continue to monitor PO trends and make recommendations as appropriate. Rec: 1. Low residue diet 2. Monitor need for additional protein/ONS with diet advancement; consider Sam and/or Ensure Enlive for wound healing pending trends in PO intake and diet advancement 3. Bowel care per rx 4. Scaled wt this admit; subsequent weekly wts Addendum: 05/04/21 at [address] Amended: Links added.
--- NOTE | 2021-05-04 14:48 | NUR ---
goyo drain removed no complications site covered with gauze and a tegaderm
[2021-05-04 15:00] VITALS: BP 148/74
--- NOTE | 2021-05-04 15:00 | NUR ---
Spoke with Dr. Fournier about IDA drain. RN spoke with Dr. Fournier while he was at patient's bedside about possible clogged IDA drain. RN reported that IDA had >200mls out the night before and had since not put out any drainage, and was concerned about a possible clog. Before RN could finish speaking, Dr. Fournier said, "Take it out. Take it out" and then left. IDA was subsequently removed and has since been leaking. Addendum: 05/05/21 at [address] by Sandy Bucio RN Dr. Fournier has been made aware of continuous leaking at site of removed IDA drain.
[2021-05-04 18:00] VITALS: BP 151/93
--- NOTE | 2021-05-04 19:00 | NUR ---
Problems reprioritized. Patient report given, questions answered & plan of care reviewed with MAGDALENA Rose.
[2021-05-04] MEDS: enoxaparin 40mg/0.4ml syringe SQ SCH (21:50)
[2021-05-04 22:00] VITALS: BP 148/85
[2021-05-05] MEDS: metroNIDAZOLE-Flagyl 500mg/NS 100 ML IV SCH ×4 (00:20→16:00)
[2021-05-05 02:00] VITALS: BP 140/84
[2021-05-05] MEDS: vancomycin inj. 750 MG in normal saline 250ml IV soln 250 ML IV SCH ×2 (02:15→13:59)
[2021-05-05] MEDS: HYDROcodone/acetaminophen 5mg/325mg tablet PO PRN ×3 (02:28→16:46)
[2021-05-05 06:00] VITALS: BP 149/83
[2021-05-05 06:08] LABS: BASOPHILS # (AUTO) 0.1 X10'3 (0-0.2); BASOPHILS % (AUTO) 0.7 % (0-1); EOSINOPHILS # (AUTO) 0.6 X10'3 (0-0.9); EOSINOPHILS % (AUTO) 3.7 % (0-6); HEMATOCRIT 33.4 % (35.0-45.0); LYMPHOCYTES # (AUTO) 1.8 X10'3 (1.1-4.8); LYMPHOCYTES % (AUTO) 10.6 % (21-51); MEAN CORPUSCULAR HEMOGLOBIN 26.5 PG (27.0-31.0); MEAN CORPUSCULAR HGB CONC 32.9 g/dL (33.0-36.5); MEAN CORPUSCULAR VOLUME 80.6 FL (78-98); MEAN PLATELET VOLUME 6.3 FL (7.4-10.4); MONOCYTES % (AUTO) 5.9 % (2-12); NEUTROPHILS # (AUTO) 13.7 X10'3 (1.8-7.7); NEUTROPHILS % (AUTO) 79.1 % (42-75); PLATELET COUNT 693 X10'3 (140-440); RED BLOOD COUNT 4.14 X10'6 (4.20-5.60); RED CELL DISTRIBUTION WIDTH 29.5 % (11.5-14.5); WHITE BLOOD COUNT 17.3 X10'3 (4.5-11.0)
--- NOTE | 2021-05-05 06:30 | NUR ---
Patient in room PCU 3011. I have received report from MAGDALENA Rose and had the opportunity to ask questions and assume patient care.
--- NOTE | 2021-05-05 06:30 | NUR ---
Problems reprioritized. Patient report given, questions answered & plan of care reviewed with Smith.
[2021-05-05 06:34] LABS: ALANINE AMINOTRANSFERASE 9 U/L (12-78); ALBUMIN 1.2 G/DL (3.4-5.0); ALBUMIN/GLOBULIN RATIO 0.3 (1.1-1.5); ALKALINE PHOSPHATASE 124 IU/L (46-116); ANION GAP 6 (8-16); ASPARTATE AMINO TRANSFERASE 24 U/L (10-37); BILIRUBIN,TOTAL 0.2 MG/DL (0.1-1.0); BLOOD UREA NITROGEN 6 MG/DL (7-18); BUN/CREATININE RATIO 10.9 (6.6-38.0); CALCIUM 7.3 MG/DL (8.5-10.1); CHLORIDE 107 MMOL/L (99-107); CREATININE 0.55 MG/DL (0.40-0.90); GLUCOSE 109 MG/DL (70-104); POTASSIUM 3.9 MMOL/L (3.5-5.1); SODIUM 142 MMOL/L (135-145); TOTAL PROTEIN 4.9 G/DL (6.4-8.2); eGFR > 90 ML/MIN
[2021-05-05 07:13] LABS: MAGNESIUM 1.5 MG/DL (1.5-2.4)
[2021-05-05] MEDS: K and/or MAG REPLACEMENT MC SCH ×2 (08:00)
[2021-05-05] MEDS: HYDROmorphone inj. 0.5 MG/0.5 ML DISP.SYRIN IV PRN (09:29)
[2021-05-05] MEDS: lactobacillus rhamnosus 10,000 MMU CELLS/CAPSULE PO SCH (09:30)
[2021-05-05] MEDS: magnesium Cl slow-release 64mg tablet PO PRN (09:30)
[2021-05-05] MEDS: CefTRIAXone 2gm/D5W 50ml BAG 50 ML IV SCH (09:30)
[2021-05-05] MEDS: LORazepam 2 mg/ml vial IV PRN (09:35)
[2021-05-05 09:36] LABS: ANISOCYTOSIS 3+; LARGE PLATELETS FEW; PLATELET ESTIMATE INCREASED
[2021-05-05 09:37] LABS: TARGET CELLS FEW
[2021-05-05 11:00] VITALS: BP 141/82
[2021-05-05] MEDS: ringers solution, lacted 1,000 ML IV SCH (11:51)
[2021-05-05 15:00] VITALS: BP 157/77
--- NOTE | 2021-05-05 18:59 | NUR ---
Pt DC to [facility], EMS arrived at 1900 pt transferred to [facility], wound vac disconnected and clamped. All paper work done and picked up by EMS worker ROCIO. Pt in good spirits and ready to leave.
[2021-05-06] MEDS ORDERED: VANCOMYCIN LEVEL IV ONE (00:30)
== END 2021-05-05 19:00 | DRG 853 ==
LOC: ER 11:04 → ED HOLD 13:38 → ICU 2S 22:30 → PCU 3S 04-28 07:05
PROVIDERS: ADMIT Family Medicine; ATTEND Family Medicine
PROC: 0W9F0ZZ Drainage of Abdominal Wall, Open Approach (ICD-10-PCS; 2021-04-27)
PROC: BW211ZZ Computerized Tomography (CT Scan) of Abdomen and Pelvis using Low Osmolar Contrast (ICD-10-PCS; 2021-04-27)
PROC: 0DBN0ZZ Excision of Sigmoid Colon, Open Approach (ICD-10-PCS; principal; 2021-04-27 18:21)
PROC: 30233N1 Transfusion of Nonautologous Red Blood Cells into Peripheral Vein, Percutaneous Approach (ICD-10-PCS; 2021-04-28)
PROC: BW211ZZ Computerized Tomography (CT Scan) of Abdomen and Pelvis using Low Osmolar Contrast (ICD-10-PCS; 2021-05-02)
DX: A41.9 Sepsis, unspecified organism (principal); E43 Unspecified severe protein-calorie malnutrition; K65.1 Peritoneal abscess; K65.9 Peritonitis, unspecified; K63.1 Perforation of intestine (nontraumatic); L02.211 Cutaneous abscess of abdominal wall; J90 Pleural effusion, not elsewhere classified; Q43.8 Other specified congenital malformations of intestine; N39.0 Urinary tract infection, site not specified; D62 Acute posthemorrhagic anemia; K56.7 Ileus, unspecified; C18.7 Malignant neoplasm of sigmoid colon; D47.3 Essential (hemorrhagic) thrombocythemia; Z20.822 Contact with and (suspected) exposure to COVID-19; E87.6 Hypokalemia; B95.62 Methicillin resistant Staphylococcus aureus infection as the cause of diseases classified elsewhere; F41.9 Anxiety disorder, unspecified; Z80.41 Family history of malignant neoplasm of ovary; Z82.3 Family history of stroke; Z82.49 Family history of ischemic heart disease and other diseases of the circulatory system; Z83.3 Family history of diabetes mellitus; Z68.23 Body mass index [BMI] 23.0-23.9, adult; Z88.0 Allergy status to penicillin; Z98.51 Tubal ligation status; Z82.5 Family history of asthma and other chronic lower respiratory diseases
CPT/HCPCS: 36415; 36430; 71045; 74177; 76937; 80053; 80202; 81001; 83605; 83735; 84145; 85007; 85008; 85025; 85027; 86140; 86885; 86900; 86901; 86920; 87040; 87077; 87081; 87088; 87186; 87635; 88309; 96374; 96375; 97110; 97116; 97161; 97530; 99285; A4215; A4618; A6446; A6550; A7000; C1758; G0378; J0696; J1170; J1650; J2001; J2060; J2250; J2270; J2405; J2704; J2710; J3010; J3370; J3490; J7030; J7040; J7050; J7120; P9016; P9045; Q9963; Q9967

== ENCOUNTER 2021-09-07 06:29 | Inpatient (IN) | payer MEDICARE ==
[2021-09-02 11:18] LABS: BASOPHILS % (AUTO) 0.2 % (0-1); EOSINOPHILS # (AUTO) 0.2 X10'3 (0-0.9); EOSINOPHILS % (AUTO) 2.9 % (0-6); LYMPHOCYTES # (AUTO) 1.7 X10'3 (1.1-4.8); LYMPHOCYTES % (AUTO) 25.4 % (21-51); MEAN CORPUSCULAR HEMOGLOBIN 28.1 PG (27.0-31.0); MEAN CORPUSCULAR VOLUME 85.3 FL (78-98); MEAN PLATELET VOLUME 7.7 FL (7.4-10.4); MONOCYTES # (AUTO) 0.5 X10'3 (0-0.9); MONOCYTES % (AUTO) 7.4 % (2-12); NEUTROPHILS # (AUTO) 4.3 X10'3 (1.8-7.7); NEUTROPHILS % (AUTO) 64.1 % (42-75); PRE OP HEMATOCRIT 39.3 % (35.0-45.0); PRE OP PLATELET COUNT 223 X10'3 (140-440); RED CELL DISTRIBUTION WIDTH 14.4 % (11.5-14.5)
[2021-09-02 11:34] LABS: ALBUMIN 3.9 G/DL (3.4-5.0); ALBUMIN/GLOBULIN RATIO 1.1 (1.1-1.5); ALKALINE PHOSPHATASE 55 IU/L (46-116); BLOOD UREA NITROGEN 24 MG/DL (7-18); BUN/CREATININE RATIO 27.9 (6.6-38.0); CALCIUM 9.2 MG/DL (8.5-10.1); CHLORIDE 103 MMOL/L (99-107); CREATININE 0.86 MG/DL (0.40-0.90); PRE OP ALT 26 U/L (30-65); PRE OP ANION GAP 8 (8-16); PRE OP AST 23 U/L (10-37); PRE OP BILIRUB, TOTAL 0.2 MG/DL (0.0-1.0); PRE OP GLUCOSE 93 MG/DL (70-104); PRE OP POTASSIUM 4.1 MMOL/L (3.4-5.1); PRE OP SODIUM 140 MMOL/L (135-145); TOTAL CARBON DIOXIDE 29.2 MMOL/L (24-32); TOTAL PROTEIN 7.4 G/DL (6.4-8.2); eGFR 66 ML/MIN
[2021-09-07] VITALS (27 sets, daily range): BP systolic 113–200; BP diastolic 54–101
[~2021-09-07] VITALS: Ht 165.1 cm; Wt 55.2 kg
[~2021-09-07 06:29] MED LIST: CITA-116 PO; DOCUMENT DATE & TIME OF BETA-BLOCKER PO ONE; LOP12.5T PO; clindamycin-Cleocin 900mg/D5W 50 ML IV ONE; famotidine 20mg tablet PO ONE; ringers solution, lacted 1,000 ML IV SCH
[2021-09-07] MEDS ORDERED: MIDAZolam 1 MG/ML 5ML VIAL ONE (07:29)
[2021-09-07] MEDS ORDERED: fentaNYL/PF 50MCG/1 ML 2ML syringe ONE (07:29)
[2021-09-07] MEDS ORDERED: LIDOcaine 1% 30ml preserv. free vial ONE (10:01)
[2021-09-07] MEDS ORDERED: BUPIVAcaine/PF 2.5 mg/ml (0.25%) 30ml vial ONE (10:01)
[2021-09-07] MEDS ORDERED: proCHLORperazine 10 MG/2 ml inj IV PRN (10:05)
[2021-09-07] MEDS ORDERED: hydrALAZINE 20mg/ml inj. IV PRN (10:05)
[2021-09-07] MEDS ORDERED: meperidine/PF 25mg/ml syringe IV PRN (10:05)
[2021-09-07] MEDS ORDERED: ketorolac trometh. 30mg/ml inj. IV ONE (10:05)
[2021-09-07] MEDS ORDERED: morphine 2 MG/ML inj. syringe IV PRN (10:05)
[2021-09-07] MEDS ORDERED: ondansetron/PF 4mg/2ml inj IV PRN ×2 (10:05→14:10)
[2021-09-07] MEDS ORDERED: morphine 4 MG/ML inj SYRINge IV PRN (10:05)
[2021-09-07] MEDS ORDERED: ringers solution, lacted 1,000 ML IV SCH (10:05)
[2021-09-07] MEDS ORDERED: acetaminophen 1,000mg/100ml IV 100 ML IV PRN (10:05)
[2021-09-07] MEDS ORDERED: HYDROmorphone/PF 0.2 MG/ML SYRINGE IV PRN (10:05)
[2021-09-07] MEDS ORDERED: sevoflurane 250ml liquid IH ONE (10:22)
[2021-09-07] MEDS ORDERED: rocuronium 10mg/ml inj IV ONE (10:22)
[2021-09-07] MEDS ORDERED: fentaNYL /PF 50mcg/ml 5ml ampule ONE (10:25)
[2021-09-07] MEDS ORDERED: midazolam 1 mg/ML 2ml injection ONE (10:25)
[2021-09-07] MEDS ORDERED: LIDOcaine 2% (20mg/ml) 5ml vial ONE (10:51)
[2021-09-07] MEDS ORDERED: ePHEDrine 50MG/ML INJ. ONE (10:51)
[2021-09-07] MEDS ORDERED: propofol inj 20 ML IV ONE (10:51)
[2021-09-07] MEDS ORDERED: ondansetron/PF 4mg/2ml inj ONE (10:52)
[2021-09-07] MEDS ORDERED: dexamethasone sod phosphate 4mg/ml inj. ONE (10:52)
[2021-09-07] MEDS ORDERED: metroNIDAZOLE-Flagyl 500mg/NS 100 ML IV ONE (11:06)
[2021-09-07] MEDS ORDERED: INDOCYANINE GREEN 25 MG/10 ML VIAL IV ONE (11:57)
[2021-09-07] MEDS ORDERED: glycopyrrolate 0.2mg/ml inj ONE (13:34)
[2021-09-07] MEDS ORDERED: neostigmine methylsulfate 1 MG/ML 10ml vial ONE (13:34)
--- NOTE | 2021-09-07 14:04 | NUR ---
Received from OR via BED IN STABLE CONDITION , accompanied by Anesthesiologist and DIE CASTING MACHINE OPERATOR report given by DIE CASTING MACHINE OPERATOR AND Anesthesiolgist. Addendum: 09/07/21 at 1519 by Alia Rivera RN Amended: Links added.
[2021-09-07] MEDS ORDERED: CADD PCA waste documentation MC PRN (14:10)
[2021-09-07] MEDS: potassium CL 20mEq in D5-1/2NS 1,000 ML IV SCH ×2 (14:10→21:00)
[2021-09-07] MEDS ORDERED: naloxone 0.4 mg/ml inj IV PRN (14:10)
[2021-09-07] MEDS ORDERED: labetalol 20mg/4ml (5mg/ml) syringe IV PRN (14:35)
[2021-09-07] MEDS: labetalol 20mg/4ml (5mg/ml) syringe IV PRN ×2 (14:44→14:58)
[2021-09-07] MEDS: HYDROmorphone/PF 0.2 MG/ML SYRINGE IV PRN ×2 (14:56→15:21)
[2021-09-07] MEDS: HYDROmorph./NS 0.2 mg/ml CADD 100 ML IV SCH ×6 (15:00→23:00)
--- NOTE | 2021-09-07 16:04 | NUR ---
PATIENT DISCHARGED FROM PACU IN STABLE CONDITION AFTER REPORT GIVEN TO RN TAKING OVER PATIENTS CARE. PATIENT TRANSFERRED TO ROOM VIA BED WITH RN X2. Addendum: 09/07/21 at 1611 by Alia Rivera RN Amended: Links added.
--- NOTE | 2021-09-07 18:03 | NUR ---
Postop vitals stable, dilaudid CADD for pain. On clears. Report given to Hugo NCIHOLS.
[2021-09-07] MEDS: metoprolol tartrate 25mg tablet PO SCH (20:20)
[2021-09-08] MEDS: HYDROmorph./NS 0.2 mg/ml CADD 100 ML IV SCH ×12 (01:00→23:00)
[2021-09-08 04:00] VITALS: BP 104/57
[2021-09-08] MEDS: potassium CL 20mEq in D5-1/2NS 1,000 ML IV SCH ×3 (04:29→22:07)
[2021-09-08 06:32] LABS: BASOPHILS % (AUTO) 0.2 % (0-1); EOSINOPHILS % (AUTO) 0.2 % (0-6); HEMOGLOBIN 11.1 g/dl (12.0-16.0); LYMPHOCYTES # (AUTO) 1.5 X10'3 (1.1-4.8); LYMPHOCYTES % (AUTO) 15.7 % (21-51); MEAN CORPUSCULAR HEMOGLOBIN 28.8 PG (27.0-31.0); MEAN CORPUSCULAR HGB CONC 33.7 g/dL (33.0-36.5); MEAN CORPUSCULAR VOLUME 85.4 FL (78-98); MEAN PLATELET VOLUME 8.1 FL (7.4-10.4); MONOCYTES # (AUTO) 0.8 X10'3 (0-0.9); MONOCYTES % (AUTO) 8.9 % (2-12); PLATELET COUNT 201 X10'3 (140-440); RED BLOOD COUNT 3.86 X10'6 (4.20-5.60); RED CELL DISTRIBUTION WIDTH 14.2 % (11.5-14.5); WHITE BLOOD COUNT 9.4 X10'3 (4.5-11.0)
--- NOTE | 2021-09-08 06:35 | NUR ---
Problems reprioritized. Patient report given, questions answered & plan of care reviewed with KENROY. Addendum: 09/08/21 at 0635 by Michael Bedolla RN Amended: Links added.
[2021-09-08 06:48] LABS: ALBUMIN 2.9 G/DL (3.4-5.0); ANION GAP 9 (8-16); BLOOD UREA NITROGEN 18 MG/DL (7-18); CALCIUM 7.7 MG/DL (8.5-10.1); CHLORIDE 102 MMOL/L (99-107); CREATININE 0.82 MG/DL (0.40-0.90); GLUCOSE 147 MG/DL (70-104); POTASSIUM 4.8 MMOL/L (3.5-5.1); SODIUM 135 MMOL/L (135-145); TOTAL CARBON DIOXIDE 23.7 MMOL/L (24-32); eGFR 69 ML/MIN
[2021-09-08] MEDS: citalopram 20mg tablet PO SCH (07:49)
[2021-09-08] MEDS: enoxaparin 40mg/0.4ml syringe SQ SCH (07:50)
[2021-09-08] MEDS: metoprolol tartrate 25mg tablet PO SCH ×2 (07:50→20:02)
[2021-09-08 08:00] VITALS: BP 122/62
[2021-09-08 12:00] VITALS: BP 112/77
[2021-09-08 18:00] VITALS: BP 120/66
--- NOTE | 2021-09-08 18:20 | NUR ---
Mtz d/c'd, voiding fine. Pt was tolerating fulls, but diet changed to clears, since pt is not is not passing gas yet. Dilaudid CHAIR CAR ATTENDANT for pain. Report given to Vinod NICHOLS
[2021-09-09 00:17] VITALS: BP 140/69
[2021-09-09] MEDS: HYDROmorph./NS 0.2 mg/ml CADD 100 ML IV SCH ×3 (01:00→05:00)
[2021-09-09 06:34] LABS: BASOPHILS % (AUTO) 0.1 % (0-1); EOSINOPHILS # (AUTO) 0.1 X10'3 (0-0.9); EOSINOPHILS % (AUTO) 1.5 % (0-6); HEMATOCRIT 35.4 % (35.0-45.0); HEMOGLOBIN 11.8 g/dl (12.0-16.0); LYMPHOCYTES # (AUTO) 1.5 X10'3 (1.1-4.8); LYMPHOCYTES % (AUTO) 21.7 % (21-51); MEAN CORPUSCULAR HEMOGLOBIN 28.5 PG (27.0-31.0); MEAN CORPUSCULAR HGB CONC 33.3 g/dL (33.0-36.5); MEAN CORPUSCULAR VOLUME 85.5 FL (78-98); MEAN PLATELET VOLUME 8.2 FL (7.4-10.4); MONOCYTES # (AUTO) 0.6 X10'3 (0-0.9); MONOCYTES % (AUTO) 8.1 % (2-12); NEUTROPHILS # (AUTO) 4.7 X10'3 (1.8-7.7); NEUTROPHILS % (AUTO) 68.6 % (42-75); PLATELET COUNT 170 X10'3 (140-440); RED BLOOD COUNT 4.13 X10'6 (4.20-5.60); RED CELL DISTRIBUTION WIDTH 14.4 % (11.5-14.5); WHITE BLOOD COUNT 6.9 X10'3 (4.5-11.0)
--- NOTE | 2021-09-09 06:36 | NUR ---
Problems reprioritized. Patient report given, questions answered & plan of care reviewed with MAGDALENA Stern.
[2021-09-09 06:56] LABS: ANION GAP 5 (8-16); BLOOD UREA NITROGEN 9 MG/DL (7-18); BUN/CREATININE RATIO 12.5 (6.6-38.0); CALCIUM 8.7 MG/DL (8.5-10.1); CHLORIDE 109 MMOL/L (99-107); CREATININE 0.72 MG/DL (0.40-0.90); GLUCOSE 128 MG/DL (70-104); POTASSIUM 4.6 MMOL/L (3.5-5.1); SODIUM 140 MMOL/L (135-145); TOTAL CARBON DIOXIDE 25.9 MMOL/L (24-32); eGFR 81 ML/MIN
[2021-09-09 07:00] VITALS: BP 150/69
[2021-09-09] MEDS: potassium CL 20mEq in D5-1/2NS 1,000 ML IV SCH (07:27)
[2021-09-09] MEDS: citalopram 20mg tablet PO SCH (07:27)
[2021-09-09] MEDS: enoxaparin 40mg/0.4ml syringe SQ SCH (07:28)
[2021-09-09] MEDS: metoprolol tartrate 25mg tablet PO SCH ×2 (07:28→19:20)
[2021-09-09 08:00] VITALS: BP 185/84
[2021-09-09 11:00] VITALS: BP 150/69
[2021-09-09] MEDS: oxyCODONE/APAP 5-325mg tablet PO PRN ×2 (13:16→19:21)
--- NOTE | 2021-09-09 16:41 | NUR ---
0700 CADD check done. rn confirmed standard settings. residual 69.7ml, 28/doses given /31atttempts, total 5.8mg given. pain 02/18 0900 CADD check 68.7 ml residual 29 given/32 attempts total 6.0mg given. pain 12/19. 1100 at d/c of CADD residual 65.7, 32 doses given, 35 attempts. 6.60 mg total given
--- NOTE | 2021-09-09 18:37 | NUR ---
Patient in room [facility]. I have received report from MAGDALENA Stern and had the opportunity to ask questions and assume patient care.
[2021-09-09 20:00] VITALS: BP 164/70
[2021-09-10 00:05] VITALS: BP 177/88
[2021-09-10] MEDS: oxyCODONE/APAP 5-325mg tablet PO PRN ×3 (02:35→17:40)
[2021-09-10 05:59] LABS: BASOPHILS % (AUTO) 0.2 % (0-1); EOSINOPHILS # (AUTO) 0.2 X10'3 (0-0.9); EOSINOPHILS % (AUTO) 1.7 % (0-6); HEMATOCRIT 38.1 % (35.0-45.0); HEMOGLOBIN 12.9 g/dl (12.0-16.0); LYMPHOCYTES # (AUTO) 1.6 X10'3 (1.1-4.8); LYMPHOCYTES % (AUTO) 16.4 % (21-51); MEAN CORPUSCULAR HEMOGLOBIN 28.8 PG (27.0-31.0); MEAN CORPUSCULAR HGB CONC 33.9 g/dL (33.0-36.5); MEAN CORPUSCULAR VOLUME 84.9 FL (78-98); MONOCYTES # (AUTO) 0.5 X10'3 (0-0.9); MONOCYTES % (AUTO) 5.3 % (2-12); NEUTROPHILS # (AUTO) 7.3 X10'3 (1.8-7.7); NEUTROPHILS % (AUTO) 76.4 % (42-75); PLATELET COUNT 187 X10'3 (140-440); RED BLOOD COUNT 4.48 X10'6 (4.20-5.60); WHITE BLOOD COUNT 9.5 X10'3 (4.5-11.0)
[2021-09-10 06:22] LABS: ALBUMIN 3.3 G/DL (3.4-5.0); ANION GAP 8 (8-16); BLOOD UREA NITROGEN 6 MG/DL (7-18); BUN/CREATININE RATIO 8.5 (6.6-38.0); CALCIUM 9.2 MG/DL (8.5-10.1); CHLORIDE 100 MMOL/L (99-107); CREATININE 0.71 MG/DL (0.40-0.90); GLUCOSE 129 MG/DL (70-104); POTASSIUM 4.1 MMOL/L (3.5-5.1); SODIUM 135 MMOL/L (135-145); TOTAL CARBON DIOXIDE 27.2 MMOL/L (24-32); eGFR 82 ML/MIN
[2021-09-10 08:00] VITALS: BP 139/87
[2021-09-10] MEDS: enoxaparin 40mg/0.4ml syringe SQ SCH (09:29)
[2021-09-10] MEDS: citalopram 20mg tablet PO SCH (09:29)
[2021-09-10] MEDS: metoprolol tartrate 25mg tablet PO SCH (09:30)
[2021-09-10 12:00] VITALS: BP 140/84
[2021-09-10] MEDS ORDERED: magnesium hydroxide 30ml (MOM) UD suspension PO ONE (16:30)
[2021-09-10] MEDS ORDERED: PER5325T PO (16:37)
--- NOTE | 2021-09-10 19:04 | NUR ---
Pt DC'd home. All paper work reviewed with pt. Pt states understanding. Pt. discharge paperwork given to pt. IV removed. pt taken out of facility in wheelchair. Assisted to car and buckled in.
--- NOTE | 2021-09-10 19:07 | NUR ---
Patient in room [facility]. I have received report from MAGDALENA Stern and had the opportunity to ask questions and assume patient care.
== END 2021-09-10 17:20 | disposition home or self-care (01) | DRG 330 ==
LOC: PAS IN 06:29 → SUR 3N 16:05
PROVIDERS: ADMIT Surgery; ATTEND Surgery
PROC: 0DNW4ZZ Release Peritoneum, Percutaneous Endoscopic Approach (ICD-10-PCS; 2021-09-07)
PROC: 0DNU4ZZ Release Omentum, Percutaneous Endoscopic Approach (ICD-10-PCS; 2021-09-07)
PROC: 0DN84ZZ Release Small Intestine, Percutaneous Endoscopic Approach (ICD-10-PCS; 2021-09-07)
PROC: 0DCN8ZZ Extirpation of Matter from Sigmoid Colon, Via Natural or Artificial Opening Endoscopic (ICD-10-PCS; 2021-09-07)
PROC: 8E0W4CZ Robotic Assisted Procedure of Trunk Region, Percutaneous Endoscopic Approach (ICD-10-PCS; 2021-09-07)
PROC: 0DQN4ZZ Repair Sigmoid Colon, Percutaneous Endoscopic Approach (ICD-10-PCS; principal; 2021-09-07 10:22)
DX: Z43.3 Encounter for attention to colostomy (principal); C18.9 Malignant neoplasm of colon, unspecified; Z20.822 Contact with and (suspected) exposure to COVID-19; N73.6 Female pelvic peritoneal adhesions (postinfective); K64.8 Other hemorrhoids; Z79.899 Other long term (current) drug therapy
CPT/HCPCS: 36415; 44388; 44406; 45378; 80048; 80053; 85025; 87081; 87635; 88305; 93005; 99152; 99153; A4215; A4618; A4620; A6407; C1758; C1769; G0378; J0131; J1100; J1170; J1650; J1885; J2250; J2405; J2704; J2710; J3010; J3480; J3490; J7040; J7120